=== PATIENT | male | born 1970 | race Caucasian/White ===

== ENCOUNTER → 2021-01-16 | Outpatient (CLI) | payer OTHER ==
--- NOTE | 2021-01-16 10:10 | XR ---
EXAMINATION TYPE: XR KUB DATE OF EXAM: 01/16/2021 9:58 AM CLINICAL HISTORY: Flank pain, history of kidney stones TECHNIQUE: Single supine KUB image of the abdomen is obtained. COMPARISON: None. FINDINGS: Scattered gas is seen in non-distended small bowel loops. Gas and fecal material is seen in non-distended colon. There is no visceromegaly, pneumoperitoneum, or abnormal calcification apprecia jayro. Renal shadows are obscured by colonic contents. The lung bases are clear and the osseous structu res are intact. IMPRESSION: Overall nonobstructive bowel gas pattern.
== END | disposition home or self-care (01) ==
LOC: RADXRMAIN 09:36
PROVIDERS: ATTEND Urology
DX: R10.9 Unspecified abdominal pain (principal); Z87.442 Personal history of urinary calculi
CPT/HCPCS: 74018

== ENCOUNTER → 2021-01-28 | Outpatient (CLI) | payer OTHER ==
--- NOTE | 2021-01-28 17:12 | CT ---
EXAMINATION TYPE: CT abdomen pelvis wo con DATE OF EXAM: 01/28/2021 COMPARISON: None HISTORY: flank pain CT DLP: 551.3 mGycm Examination of the solid and hollow viscera is limited given the lack of contrast. FINDINGS: LUNG BASES: No evidence for nodule. No evidence for infiltrate. LIVER/GB: The gallbladder is unremarkable. No space-occupying hepatic lesion. PANCREAS: No pancreatic mass identified. No inflammatory process seen. SPLEEN: No evidence for splenomegaly. No intrasplenic lesions seen. ADRENALS: No adrenal nodules identified. No evidence for thickening. KIDNEYS: No evidence for renal mass. No nephrolithiasis. No hydronephrosis. BOWEL: Appendix has a normal appearance. No evidence of bowel obstruction. No inflammatory process. Lymph nodes: No evidence for adenopathy greater than 1 cm. Abdominal aorta: Atheromatous changes seen. No evidence for aneurysm. Genital organs: No significant abnormality. Other: No significant abnormality. IMPRESSION: NO DISTINCT ABNORMALITY SEEN.
== END | disposition home or self-care (01) ==
LOC: RADCTMAIN 16:11
PROVIDERS: ATTEND Urology
DX: R10.9 Unspecified abdominal pain (principal)
CPT/HCPCS: 74176